=== PATIENT | female | born 2000 | race Caucasian/White ===

== ENCOUNTER 2019-02-24 20:27 | Emergency (ER) | payer OTHER ==
[~2019-02-24] VITALS: Ht 160 cm; Wt 57.7 kg
[2019-02-24 21:09] VITALS: BP 108/69
--- NOTE | 2019-02-24 21:11 | NUR ---
FIRST CONTACT WITH PT. PT HERE WITH COMPLAINTS OF STOMACH ACHE FROM 11 TO 1600, NOW RESOLVED, THEN STATES THAT HER HANDS AND ARMS FELT NUMB AND TINGLING, BUT NOT HAPPENING RIGHT NOW, ALL SYMPTOMS ARE RESOLVED AND HAS NO COMPLAINTS, IN TOWN WITH [facility] FOR FIELD ASSIGNEMENT. PT'S AOX4. RESPS EVEN AND UNLABORED. BP/SPO2 MONITORS IN PLACE. CALL LIGHT WITHIN REACH. PT'S TEACHER AT BEDSIDE NOW.
[2019-02-24 21:37] LABS: BASOPHILS # (AUTO) 0.03 x10^3/uL (0-0.3); BASOPHILS % (AUTO) 0 % (0-1); EOSINOPHILS # (AUTO) 0.04 x10^3/uL (0-0.8); EOSINOPHILS % (AUTO) 1 % (1-7); LYMPHOCYTES % (AUTO) 30 % (22-44); MD NO; MEAN CORPUSCULAR HEMOGLOBIN 29.3 pg (27.0-34.8); MEAN CORPUSCULAR HGB CONC 32.9 g/dL (32.4-35.8); MEAN PLATELET VOLUME 8.7 fL (7.4-10.4); MONOCYTES # (AUTO) 0.58 x10^3/uL (0-1.4); MONOCYTES % (AUTO) 7 % (2-9); NEUTROPHILS # (AUTO) 4.97 x10^3/uL (1.8-8.0); NEUTROPHILS % (AUTO) 62 % (42-75); PLATELET COUNT 290 x10^3/uL (130-400); RED BLOOD COUNT 4.18 x10^6/uL (3.82-5.3); RED CELL DISTRIBUTION WIDTH 13.7 % (9.6-15.2)
[2019-02-24 21:46] LABS: ALANINE AMINOTRANSFERASE 21 U/L (12-78); ALBUMIN 4.2 g/dL (3.4-5.0); ANION GAP 9 mmol/L (5-15); CALCIUM 8.8 mg/dL (8.5-10.1); CHLORIDE 107 mmol/L (98-107)
[2019-02-24 21:51] LABS: ALKALINE PHOSPHATASE 59 U/L (45-117); BILIRUBIN,TOTAL 0.5 mg/dL (0.2-1.0); CREATININE 0.83 mg/dL (0.55-1.02); TOTAL PROTEIN 7.8 g/dL (6.4-8.2)
--- NOTE | 2019-02-24 22:12 | NUR ---
pt resting in [facility]. bp/spo2 monitors in place. call light within reach. awaiting dispo.
== END 2019-02-24 22:45 | disposition home or self-care (01) ==
LOC: ED 22:06
DX: R10.84 Generalized abdominal pain (principal); R20.2 Paresthesia of skin
CPT/HCPCS: 36415; 80053; 83690; 84703; 85025; 99283